=== PATIENT | female | born 1960 | race Caucasian/White ===

== ENCOUNTER 2018-01-10 16:03 | Emergency (ER) | payer BC ==
[2018-01-10 16:10] VITALS: BP 163/106; PULSE 98; TEMP 99; BMI 29.2
[2018-01-10] MEDS ORDERED: IBUPROFEN 600 MG TABLET (FP) PO ONE ×2 (16:30→16:44)
[2018-01-10] MEDS ORDERED: DIPHTH,PERTUSS(ACELL),TET 0.5 ML DISP.SYRIN IM ONE (16:30)
--- NOTE | 2018-01-10 16:34 | PDOC ---
History of Present Illness - General History Source: Patient Exam Limitations: No Limitations <Richelle Teague - Last Filed: 01/10/18 17:48> - History of Present Illness Initial Comments: 01/10/18 16:47 The patient is a 57 year old female, with no significant past medical history, who presents to the emergency department 30 minutes s/p mechanical fall, with nose and bilateral knee pain. As per patient, she was out walking when she tripped over a rock and fell face first. She initial bleeding to her nose and knees. She was able to ambulate post fall. The patient states her nose looks swollen, however, denies it to be deviated to either side. The patients tetanus shot is not up to date. She denies any loss of consciousness. She denies recent fevers, chills, headache or dizziness. She denies recent nausea, vomit, diarrhea or constipation. She denies recent dysuria, frequency, urgency or hematuria. She denies recent chest pain or shortness of breath. Allergies: Sulfa Past surgical history: None reported. Social history: Nonsmoker. Denies EtOH use and recreational drug use. <Aggie De La O - Last Filed: 01/10/18 18:05> - General Chief Complaint: Pain, Acute Stated Complaint: BILATERAL KNEE, NOSE PAIN Time Seen by Provider: 01/10/18 16:29 Past History - Past Medical History CVA: No COPD: No DVT: No Thyroid Disease: Yes - Suicide/Smoking/Psychosocial Hx Smoking History: Never smoked Hx Alcohol Use: Yes Drug/Substance Use Hx: No Substance Use Type: Alcohol <Richelle Teague - Last Filed: 01/10/18 17:48> <Aggie De La O - Last Filed: 01/10/18 18:05> - Past Medical History Allergies/Adverse Reactions: Allergies Allergy/AdvReac Type Severity Reaction Status Date / Time Sulfa (Sulfonamide Allergy Verified 01/10/18 16:04 Antibiotics) Home Medications: Ambulatory Orders Cephalexin Monohydrate [Keflex -] 500 mg PO BID #10 capsule 01/10/18 Ibuprofen [Motrin -] 600 mg PO TID PRN #90 tablet 01/10/18 Levothyroxine [Synthroid -] 75 mcg PO DAILY 01/10/18 Review of Systems - Review of Systems Constitutional: No: Chills, Diaphoresis HEENTM: No: Eye Pain, Blurred Vision Respiratory: No: Cough, Orthopnea Cardiac (ROS): No: Chest Pain ABD/GI: No: Abdominal Distended : No: Burning Musculoskeletal: Yes: Joint Pain Integumentary: Yes: Other (abrasion) Neurological: No: Headache, Numbness Psychiatric: No: Frequent Crying, Stressors All Other Systems: Reviewed and Negative <Richelle Teague - Last Filed: 01/10/18 17:48> - Review of Systems Able to Perform ROS?: Yes Comments:: 01/10/18 16:47 GENERAL/CONSTITUTIONAL: No fever or chills. No weakness. +HEAD, EYES, EARS, NOSE AND THROAT: Nose pain, bruising, and swelling. No change in vision. No ear pain or discharge. No sore throat. CARDIOVASCULAR: No chest pain or shortness of breath. RESPIRATORY: No cough, wheezing, or hemoptysis. GASTROINTESTINAL: No nausea, vomiting, diarrhea or constipation. GENITOURINARY: No dysuria, frequency, or change in urination. +MUSCULOSKELETAL: Bilateral knee pain. No joint or muscle swelling or pain. No neck or back pain. SKIN: No rash NEUROLOGIC: No headache, vertigo, loss of consciousness, or change in strength/ sensation. ENDOCRINE: No increased thirst. No abnormal weight change. HEMATOLOGIC/LYMPHATIC: No anemia, easy bleeding, or history of blood clots. ALLERGIC/IMMUNOLOGIC: No hives or skin allergy. <Aggie De La O - Last Filed: 01/10/18 18:05> *Physical Exam - Vital Signs Last Vital Signs Temp Pulse Resp BP Pulse Ox 99.0 F 98 H 18 163/106 100 01/10/18 16:04 01/10/18 16:04 01/10/18 16:04 01/10/18 16:04 01/10/18 16:04 <Richelle Teague - Last Filed: 01/10/18 17:48> - Vital Signs Last Vital Signs Temp Pulse Resp BP Pulse Ox 99.0 F 98 H 18 163/106 100 01/10/18 16:04 01/10/18 16:04 01/10/18 16:04 01/10/18 16:04 01/10/18 16:04 - Physical Exam Comments: 01/10/18 16:48 GENERAL: Awake, alert, and fully oriented, in no acute distress +HENT: Nasal bridge abrasion and tenderness. Swelling and ecchymosis to the left lateral nose. Septum without hematoma. Dried blood in the left nare. Auricles normal inspection, hearing grossly normal. Moist mucosa EYES: PERRLA, EOMI, sclera anicteric, conjunctiva clear NECK: Normal ROM, supple, no lymphadenopathy, JVD, or masses LUNGS: Breath sounds equal, clear to auscultation bilaterally. No wheezes, and no crackles HEART: Regular rate and rhythm, normal S1 and S2, no murmurs, rubs or gallops ABDOMEN: Soft, nontender, normoactive bowel sounds. No guarding, no rebound. No masses +EXTREMITIES: Bilateral knee tenderness. Superficial abrasions to the bilateral knees. No laxity, full ROM, negative anterior and posterior drawer sign of bilateral knees. No ecchymosis. Hip and ankle normal ROM without tenderness. DP/ PT pulses 2+ and symmetric. Warm and well perfused. NEUROLOGICAL: GCS 15. Moves all extremities. Normal speech, normal gait BACK: No midline tenderness. No palpable cervical, lumbar, and sacral tenderness. SKIN: Warm, Dry, normal turgor, no rashes or lesions noted. <Aggie De La O - Last Filed: 01/10/18 18:05> ED Treatment Course - RADIOLOGY Radiology Studies Ordered: Category Date Time Status KNEE 3 POS-LEFT [RAD] Stat Radiology 01/10/18 16:29 Ordered KNEE 3 POS-RIGHT [RAD] Stat Radiology 01/10/18 16:29 Ordered NASAL BONES [RAD] Stat Radiology 01/10/18 16:29 Ordered <Richelle Teague - Last Filed: 01/10/18 17:48> Medical Decision Making - Medical Decision Making 01/10/18 16:32 57-year-old female status post trip and fall complaining of nasal abrasion nasal swelling epistaxis and bilateral knee pain. Patient was emissary following her fall happened one hour prior to arrival she landed on her face did have epistaxis following but has resolved pain is moderate worse with movement abrasions to her bilateral knees and nasal bridge last tetanus is unknown On physical exam the nasal bridge is within abrasion there is tenderness especially in the left lateral edge no nasal septal hematoma bilateral knees are with superficial abrasion range of motion plan x-ray to rule out fracture of the nasal bones as well as bilateral knees. Tetanus will be given Estrace into the wounds ibuprofen for pain patient will likely be discharged home with follow-up referral for both orthopedics and plastic surgery as needed <Richelle Teague - Last Filed: 01/10/18 17:48> *DC/Admit/Observation/Transfer <Richelle Teague - Last Filed: 01/10/18 17:48> - Attestations Scribe Attestion: 01/10/18 16:48 Documentation prepared by Aggie De La O, acting as medical field representative for Richelle Teague MD. <Aggie De La O - Last Filed: 01/10/18 18:05> Diagnosis at time of Disposition: Nasal fracture, Contusion, knee, Abrasion - Discharge Dispostion Disposition: HOME Condition at time of disposition: Improved - Prescriptions Prescriptions: Cephalexin Monohydrate [Keflex -] 500 mg PO BID #10 capsule Ibuprofen [Motrin -] 600 mg PO TID PRN #90 tablet PRN Reason: Pain - Referrals Referrals: Raudel Horton [Non Staff, Medical] - Luis Chua MD [Staff Physician] - - Patient Instructions Printed Discharge Instructions: Nose Fracture, DI for Knee Pain Additional Instructions: He can take ibuprofen 600 mg every 8 hours as needed for pain. Take with food. Ice to bilateral knees off-and-on every hour next 24 hours to help with. Swelling and also ice to the nasal bridge. No nose blowing for 3 days follow-up with plastic surgeon Dr. Horton see referral information and call to schedule to be seen within 1-2 weeks and also follow-up with orthopedist Dr. Chua for persistent knee pain. He can apply bacitracin ointment to her abrasions twice daily keep out of the sun to avoid scarring return for any nausea vomiting could fusion were any concerns he may have you were given a tetanus shot today while in the emergency room you can take keflex 500 mg twice daily x 5 days. use afrin nasal spray twice daily x 3 days.
[2018-01-10] MEDS ORDERED: OXYMETAZOLINE 0.05% NASAL SOLUTION 15 ML BOTTLE NS PRN (17:51)
[2018-01-10] MEDS ORDERED: OXYMETAZOLINE 0.05% NASAL SOLUTION 15 ML BOTTLE NS ONE (17:53)
== END 2018-01-10 18:22 | disposition home or self-care (01) ==
LOC: FER 16:03
PROC: 3E0234Z Introduction of Serum, Toxoid and Vaccine into Muscle, Percutaneous Approach (ICD-10-PCS; principal; 2018-01-10)
DX: S02.2XXA Fracture of nasal bones, initial encounter for closed fracture (principal); S80.02XA Contusion of left knee, initial encounter; S80.01XA Contusion of right knee, initial encounter; W01.0XXA Fall on same level from slipping, tripping and stumbling without subsequent striking against object, initial encounter; Y93.01 Activity, walking, marching and hiking; Y92.89 Other specified places as the place of occurrence of the external cause; Z88.2 Allergy status to sulfonamides
CPT/HCPCS: 70160-TC-FY; 73562-TC-LT-FY; 73562-TC-RT-FY; 90715; 99283-25